=== PATIENT | female | born 1955 | race Caucasian/White ===

== ENCOUNTER 2017-01-29 04:39 | Emergency (ER) | payer BC ==
[2017-01-29] MEDS ORDERED: DIPHENHYDRAMINE HCL 50 MG/ML VIAL IV ONE ×2 (05:03→05:04)
[2017-01-29] MEDS ORDERED: METHYLPREDNISOLONE INJ 125 MG/2 ML SDV IV ONE (05:03)
[2017-01-29] MEDS ORDERED: FAMOTIDINE INJ/PF 20 MG/2 ML SDV IV ONE (05:03)
--- NOTE | 2017-01-29 05:46 | ER Document Report ---
ED Allergic Reaction - General Chief Complaint: Allergic Reaction Stated Complaint: POSSIBLE ALLERGIC REACTION Time Seen by Provider: 01/29/17 04:58 Notes: Patient is a 61-year-old female comes emergency department for chief complaint of allergic reaction. She states that at about 5 PM she suddenly broke out into hives over most of her body, she reports the rash is itchy, she denies shortness of breath, throat swelling, difficulty swallowing, facial swelling, or any other symptoms. She is unsure what caused the allergic reaction. 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 She denies any cardiac history, only reported medical history is hypertension and hysterectomy. TRAVEL OUTSIDE OF THE [place] IN LAST 30 DAYS: No - Related Data Allergies/Adverse Reactions: Sulfa (Sulfonamide Antibiotics) Allergy (Mild, Verified 01/29/17 04:46) RASH Past Medical History - General Information source: Patient - Social History Smoking Status: Never Smoker Drug Abuse: None Lives with: Family Family History: Reviewed & Not Pertinent Patient has suicidal ideation: No Patient has homicidal ideation: No - Past Medical History Cardiac Medical History: Reports: Hx Hypertension - MEDICATED Denies: Hx Heart Attack Pulmonary Medical History: Denies: Hx Asthma Neurological Medical History: Denies: Hx Cerebrovascular Accident, Hx Seizures Renal/ Medical History: Denies: Hx Peritoneal Dialysis GI Medical History: Denies: Hx Hepatitis, Hx Hiatal Hernia, Hx Ulcer Infectious Medical History: Denies: Hx Hepatitis Past Surgical History: Reports: Hx Hysterectomy. Denies: Hx Mastectomy, Hx Open Heart Surgery, Hx Pacemaker Review of Systems - Review of Systems Constitutional: No symptoms reported EENT: No symptoms reported Cardiovascular: No symptoms reported Respiratory: No symptoms reported Gastrointestinal: No symptoms reported Genitourinary: No symptoms reported Female Genitourinary: No symptoms reported Musculoskeletal: No symptoms reported Skin: See HPI Hematologic/Lymphatic: No symptoms reported Neurological/Psychological: No symptoms reported Physical Exam - Vital signs Vitals: Temp Pulse Resp BP Pulse Ox 98.1 F 91 18 117/68 99 01/29/17 04:44 01/29/17 04:44 01/29/17 04:44 01/29/17 04:44 01/29/17 04:44 Interpretation: Normal - General General appearance: Alert, Anxious In distress: None - HEENT Head: Normocephalic, Atraumatic Eyes: Normal Conjunctiva: Normal Extraocular movements intact: Yes Eyelashes: Normal Pupils: PERRL Ears: Normal Sinus: Normal Nasal: Normal Mouth/Lips: Normal Mucous membranes: Normal Pharynx: Normal. No: Erythema, Uvular edema, Potential airway comprom. Neck: Normal - Respiratory Respiratory status: No respiratory distress Chest status: Nontender Breath sounds: Normal. No: Decreased air movement, Wheezing Chest palpation: Normal - Cardiovascular Rhythm: Regular. No: Tachycardia Heart sounds: Normal auscultation, S1 appreciated, S2 appreciated Murmur: No - Abdominal Inspection: Normal Distension: No distension Bowel sounds: Normal Tenderness: Nontender Organomegaly: No organomegaly - Back Back: Normal, Nontender - Extremities General upper extremity: Normal inspection, Nontender, Normal ROM, Normal strength General lower extremity: Normal inspection, Nontender, Normal ROM, Normal strength - Neurological Neuro grossly intact: Yes Cognition: Normal Orientation: AAOx4 Nancy Coma Scale Eye Opening: Spontaneous Nancy Coma Scale Verbal: Oriented Nancy Coma Scale Motor: Obeys Commands Arrington Coma Scale Total: 15 Speech: Normal Cranial nerves: Normal Cerebellar coordination: Normal Motor strength normal: LUE, RUE, LLE, RLE Additional motor exam normals: Equal distribution agent Sensory: Normal - Psychological Associated symptoms: Anxious - Skin Skin Temperature: Warm Skin Moisture: Dry Skin Color: Normal, Erythema - Widespread urticarial rash over arms, chest, back , legs, feet Course - Re-evaluation Re-evalutation: Patient with widespread urticarial rash, no mucous membrane involvement, no airway compromise. Initially given Solu-Medrol and antihistamines although on reevaluation's patient had minimal response. She is requesting additional treatment. I discussed IM epinephrine, discussed potential adverse side effects , patient requested. Patient was given this, she was monitored carefully, she had no tachycardia, no chest pain, she did have resolution of most of the rash except for faint rash near her neck. Symptoms improved significantly. Patient is asking to leave after monitoring. Rash has almost entirely disappeared but has not completely disappeared. Patient has had no anaphylaxis on her evaluation and monitoring, no symptoms of anaphylaxis reported. Still unsure of the source. Patient will be treated with steroids, antihistamines, discussed follow-up, discussed return precautions, patient states understanding and agreement. - Vital Signs Vital signs: Temp Pulse Resp BP Pulse Ox 98.1 F 91 19 120/81 96 10/25/17 04:44 01/29/17 04:44 01/29/17 06:31 01/29/17 06:31 01/29/17 06:31 Discharge - Discharge Clinical Impression: Urticaria Condition: Stable Disposition: HOME, SELF-CARE Additional Instructions: Your examination is consistent with urticaria/hives, allergic reaction, the exact cause of this is unsure. Please take the prednisone as prescribed, take the Pepcid daily for 1 week, take either the Benadryl or the Zyrtec daily for 1 week (benadryl is more sedating but can be taken more frequently). Follow-up with your primary care provider for additional management. Return to the emergency department immediately if you worsen in any way including return or worsening rash, swelling of the face, difficulty breathing, difficulty swallowing, or any other concerning symptoms. Prescriptions: Cetirizine HCl [Zyrtec 10 mg Tablet] 1 tab PO DAILY #30 tablet Diphenhydramine HCl [Benadryl 25 mg Capsule] 1 - 2 cap PO Q6H PRN #30 capsule PRN Reason: Famotidine [Pepcid 20 mg Tablet] 20 mg PO DAILY #12 tablet Prednisone [Deltasone 10 mg Tablet] 10 mg PO ASDIR PRN #21 tablet PRN Reason: Forms: Return to Work
[2017-01-29] MEDS ORDERED: EPINEPHRINE INJ/PF 1 MG/1 ML AMPULE IM ONE (06:29)
[2017-01-29] MEDS ORDERED: PREDNISONE 20 MG TABLET PO ONE (07:02)
[2017-01-29 07:40] VITALS: BP 123/66
== END 2017-01-29 07:46 | disposition home or self-care (01) ==
LOC: ER 04:39
DX: L50.9 Urticaria, unspecified (principal); T78.40XA Allergy, unspecified, initial encounter
CPT/HCPCS: 99283; 96374; 96375; J1200; J0171; J2930; J7512; S0028

== ENCOUNTER 2017-01-29 21:22 | Emergency (ER) | payer BC ==
[2017-01-29] MEDS ORDERED: DIPHENHYDRAMINE HCL 25 MG CAPSULE ONE (22:46)
[2017-01-29] MEDS ORDERED: DIPHENHYDRAMINE HCL 50 MG CAPSULE PO ONE (22:49)
[2017-01-29] MEDS ORDERED: EPINEPHRINE INJ/PF 1 MG/1 ML AMPULE IM ONE (23:26)
[2017-01-29] MEDS ORDERED: FAMOTIDINE INJ/PF 20 MG/2 ML SDV IV ONE (23:26)
[2017-01-29] MEDS ORDERED: METHYLPREDNISOLONE INJ 125 MG/2 ML SDV IV ONE (23:26)
--- NOTE | 2017-01-29 23:28 | ER Document Report ---
HPI - HPI Patient complains to provider of: Skin rash Onset: This evening Onset/Duration: Sudden Pain Level: 1 Context: Patient states she developed a skin rash this evening about an hour after taking her nightly blood pressure medications. Patient states she had a similar episode yesterday evening for which she was seen in the emergency department and given Benadryl, steroids and Pepcid. Patient denies any other new foods, medications or detergents. Patient denies any difficulty breathing, lip swelling or tongue swelling. Associated Symptoms: Other - Skin rash. denies: Chest pain, Nonproductive cough , Productive cough, Fever, Vomiting Exacerbated by: Denies Relieved by: Denies Similar symptoms previously: Yes Recently seen / treated by doctor: Yes - ROS ROS below otherwise negative: Yes Systems Reviewed and Negative: Yes All other systems reviewed and negative - CARDIOVASCULAR Cardiovascular: DENIES: Chest pain - RESPIRATORY Respiratory: DENIES: Trouble Breathing, Coughing - GASTROINTESTINAL Gastrointestinal: DENIES: Nausea, Patient vomiting - MUSCULOSKELETAL Musculoskeletal: DENIES: Swelling - DERM Skin Color: Normal Skin Problems: Rash Past Medical History - General Information source: Patient - Social History Smoking Status: Current Every Day Smoker Frequency of alcohol use: None Drug Abuse: None 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 Denies: Hx Hepatitis , Hx Hiatal Hernia, Hx Ulcer Infectious Medical History: Denies: Hx Hepatitis Past Surgical History: Reports: Hx Hysterectomy, Hx Oral Surgery, Hx Orthopedic Surgery, Other - Bladder surgery. Denies: Hx Mastectomy, Hx Open Heart Surgery , Hx Pacemaker Vertical Provider Document - CONSTITUTIONAL Agree With Documented VS: Yes Exam Limitations: No Limitations General Appearance: WD/WN, No Apparent Distress - INFECTION CONTROL TRAVEL OUTSIDE OF THE [place] IN LAST 30 DAYS: No - HEENT HEENT: Atraumatic, Normal ENT Exam, Normocephalic Notes: No angioedema, no potential airway compromise - NECK Neck: Normal Inspection, Supple. negative: Lymphadenopathy-Left, Lymphadenopathy-Right - RESPIRATORY Respiratory: Breath Sounds Normal, No Respiratory Distress, Chest Non-Tender O2 Sat by Pulse Oximetry: 100 - CARDIOVASCULAR Cardiovascular: Regular Rate, Regular Rhythm, No Murmur - BACK Back: Normal Inspection - MUSCULOSKELETAL/EXTREMETIES Musculoskeletal/Extremeties: MAEW - NEURO Level of Consciousness: Awake, Alert, Appropriate Motor/Sensory: No Motor Deficit - DERM Integumentary: Warm, Dry, Rash - Diffuse urticarial rash to extremities trunk and face Course - Re-evaluation Re-evalutation: 01/30/17 00:17 Hives resolved to extremities, patient continues with mild erythema noted to face and back area. Patient continues without any concerns for angioedema or any potential airway compromise. 01/30/17 01:00 Hives almost completely resolved to trunk. Patient continues without any airway compromise or concerns about angioedema. Patient states pruritus is improved as well. 01/30/17 01:[address] Cohi regarding patient presentation and plan of care. Recommends giving patient a prescription for EpiPen to take at home. 01/30/17 01:56 Patient denies any itching or skin rash at this time. Discussed worsening symptoms that patient should return immediately for or call 911 for. Patient advised not to take her blood pressure medication until she sees her primary doctor to address possible reaction to her medicine. Patient advised to call her primary doctor later this morning for follow-up appointment. - Vital Signs Vital signs: Temp Pulse Resp BP Pulse Ox 97.7 F 95 18 150/84 H 100 01/29/17 22:50 01/29/17 22:50 01/29/17 22:50 01/29/17 22:52 01/29/17 22:50 Discharge - Discharge Clinical Impression: Urticaria, Hx of essential hypertension Condition: Stable Disposition: HOME, SELF-CARE Instructions: Acute Urticaria ([facility]), Use of Diphenhydramine, Epinephrine, Steroid Medication Additional Instructions: Return immediately for any new or worsening symptoms Followup with your primary care provider this morning for further evaluation. Discussed with them your symptoms and concern about possible reaction to your blood pressure medication. Do not take your blood pressure medication until you have discussed this with your primary doctor first. Continue to take the steroids, Benadryl and Pepcid that was prescribed at your last visit. Prescriptions: Epinephrine [Epipen 2-Elfego] 0.3 mg IM ASDIR PRN #1 unit PRN Reason: Forms: Return to Work Referrals: TORSTEN BARRETT PA [Primary Care Provider] - 01/30/17
[2017-01-30 03:02] VITALS: BP 132/71
== END 2017-01-30 03:02 | disposition home or self-care (01) ==
LOC: ER 21:22
DX: L50.9 Urticaria, unspecified (principal); I10 Essential (primary) hypertension; F17.200 Nicotine dependence, unspecified, uncomplicated
CPT/HCPCS: 99282; 96372; 96374; 96375; J0171; J2930; S0028